=== PATIENT | female | born 2000 | race Two or more races ===

== ENCOUNTER 2024-05-23 18:04 | Emergency (ER) | payer MEDICAID ==
[~2024-05-23] VITALS: Ht 165.1 cm; Wt 68.0 kg
[2024-05-23 18:34] VITALS: BP 154/88; TEMP 98.3; O2SAT 99
[2024-05-23] MEDS ORDERED: LIDOCAINE HCL/MPF 1% 30 ML VIAL IJ ONE (18:57)
== END 2024-05-23 20:15 | disposition home or self-care (01) ==
LOC: ER 18:09
DX: S61.412A Laceration without foreign body of left hand, initial encounter (principal); Z91.048 Other nonmedicinal substance allergy status; W26.8XXA Contact with other sharp object(s), not elsewhere classified, initial encounter; Y93.89 Activity, other specified; Y92.89 Other specified places as the place of occurrence of the external cause; Y99.8 Other external cause status
CPT/HCPCS: 12002; 99282; J3490